=== PATIENT | male | born 1970 | race Caucasian/White ===

== ENCOUNTER 2016-06-29 14:43 | Emergency (ER) | payer OTHER ==
[2016-06-29 15:18] LABS: BASO # 0.1 10_X3_uL (0.0-0.1); BASO % 0.7 % (0.2-1.2); EOS # 0.1 10_X3_uL (0.0-0.5); EOS % 1.9 % (0.8-7.0); GRAN # 3.7 10_X3_uL (1.8-5.4); HEMATOCRIT 40.8 % (40-51); HEMOGLOBIN 13.3 g/dL (13.7-17.5); LYMPH # 2.9 10_X3_uL (1.3-3.6); LYMPH % 40.2 % (21.8-53.1); MEAN CORPUSCULAR HEMOGLOBIN 29.8 pg (27.0-33.0); MEAN CORPUSCULAR HGB CONC 32.6 g/dL (32.0-36.0); MEAN CORPUSCULAR VOLUME 91.5 fL (79-92); MONO # 0.5 10_X3_uL (0.3-0.8); MONO % 6.2 % (5.3-12.2); PLATELET COUNT 174 x10_3/uL (163-337); RED BLOOD COUNT 4.46 x10_6/uL (4.6-6.1); RED CELL DISTRIBUTION WIDTH 16.2 % (11.6-14.4); WHITE BLOOD COUNT 7.2 x10_3/uL (4.2-9.1)
[2016-06-29 15:24] LABS: INR 1.1 (0.9-1.1); PROTHROMBIN TIME (PATIENT) 11.5 SECONDS (9.9-11.1)
[2016-06-29 15:27] LABS: ALBUMIN 3.4 gm/dL (3.4-5.0); ALKALINE PHOSPHATASE 111 U/L (50-136); ALT/SGPT 125 U/L (7.53-40.17); AST/SGOT 97 U/L (6.66-35.34); BILIRUBIN,TOTAL 0.58 mg/dL (0.0-1.0); BLOOD UREA NITROGEN 16 mg/dL (7-18); CALCIUM 8.1 mg/dL (8.7-10.7); CARBON DIOXIDE 21 mmol/L (21-32); CREATINE KINASE 87 U/L (35-232); CREATININE 0.8 mg/dL (0.6-1.3); GLUCOSE,RANDOM 125 mg/dL (70-99); POTASSIUM 4.1 mmol/L (3.5-5.1); SODIUM 139 mmol/L (136-145); TOTAL PROTEIN 7.6 gm/dL (6.4-8.2)
== END 2016-06-29 18:39 | disposition home or self-care (01) ==
LOC: ER 14:43
PROVIDERS: Emergency Medicine
DX: J32.9 Chronic sinusitis, unspecified (principal); R42 Dizziness and giddiness; H92.09 Otalgia, unspecified ear; I51.9 Heart disease, unspecified; E11.9 Type 2 diabetes mellitus without complications; I10 Essential (primary) hypertension; Z95.5 Presence of coronary angioplasty implant and graft; F17.210 Nicotine dependence, cigarettes, uncomplicated; Z79.899 Other long term (current) drug therapy; Z88.0 Allergy status to penicillin
CPT/HCPCS: 36415; 70450; 71010; 80053; 82550; 82553; 85025; 85610; 85730; 93005; 96374; 99070; 99284-25; J8597

== ENCOUNTER 2016-07-17 16:14 | Emergency (ER) | payer OTHER | END 2016-07-17 17:15 | disposition home or self-care (01) | LOC: ER 16:14 | PROC: 3E0234Z Introduction of Serum, Toxoid and Vaccine into Muscle, Percutaneous Approach (ICD-10-PCS; principal; 2016-07-17) | DX: S61.452A Open bite of left hand, initial encounter (principal); W54.0XXA Bitten by dog, initial encounter; Y92.89 Other specified places as the place of occurrence of the external cause; E11.9 Type 2 diabetes mellitus without complications; I10 Essential (primary) hypertension; F17.210 Nicotine dependence, cigarettes, uncomplicated; Z88.0 Allergy status to penicillin; Z23 Encounter for immunization | CPT/HCPCS: 73130; 90471; 90715; 99283-25 ==

== ENCOUNTER 2016-09-20 15:46 | Emergency (ER) | payer OTHER | END 2016-09-20 16:38 | disposition home or self-care (01) | LOC: ER 15:46 | DX: K08.89 Other specified disorders of teeth and supporting structures (principal); K08.409 Partial loss of teeth, unspecified cause, unspecified class; R68.84 Jaw pain; F17.210 Nicotine dependence, cigarettes, uncomplicated; Z79.899 Other long term (current) drug therapy; Z88.0 Allergy status to penicillin | CPT/HCPCS: 96372; 99282-25 ==